=== PATIENT | female | born 1945 | race Caucasian/White ===

== ENCOUNTER 2017-11-01 11:23 | Emergency (ER) | payer MEDICARE, OTHER ==
[~2017-11-01] VITALS: Ht 162.6 cm; Wt 65.0 kg
[~2017-11-01 11:23] MED LIST: ASPI81TA82 PO; CALC600T34 PO; CO Q100C9 PO; COZA50TA PO; KRIL1000 PO; NAPR500 PO; SIMV10TA PO; TAB-TAB PO
[2017-11-01 11:26] VITALS: BP 137/91; PULSE 87; RESP 16; TEMP 97.8; O2SAT 97
--- NOTE | 2017-11-01 11:48 | PD ---
HPI Chief Complaint: GI Complaint Time Seen by Provider: 11:47 Travel History International Travel<30 days: No Contact w/Intl Traveler<30days: No Traveled to known affect area: No History of Present Illness HPI 71-year-old female came to the emergency room with history of vomiting and diarrhea that started 4 days ago. Patient says she initially had vomiting for 36 hours which stopped. She cannot get the diarrhea to stop. She took some Imodium [id number] but has not helped. She has had more than 10 episodes of diarrhea in past 24 hours. The last one was at 9:30. Patient says whenever she eats or drinks comes right through. No blood in her stool. No history of severe abdominal pain. No known sick contacts. Patient has not been on antibiotics. No history of C. difficile colitis in the past. Vital signs were relatively stable. PFSH Past Medical History Narrative Medical List of her past medical, surgical, social and family history is reviewed from the nursing note. Hx Anticoagulant Therapy: Yes (BABY ASA DAILY) Cardiovascular Problems: Yes (HTN) High Cholesterol: Yes Chemotherapy: No Cerebrovascular Accident: No Diabetes: No Diminished Hearing: No Herniated Disk: Yes (C5-C6) Hypertension: Yes Respiratory: Yes (BRONCHITIS) Migraines: Yes ?: Not Menopausal: Yes : 0 Past Surgical History Eye Surgery: Yes (CATARACT: BILATERAL, 2013) Hysterectomy: Yes Neurologic Surgery: Yes (ACDF C5-C6) Oral Surgery: Yes (PERIDONTAL) Tonsillectomy: Yes Other Surgery: Yes (ACDF) Social History Alcohol Use: Yes ("BEER ONCE IN A BLUE HUERTA") Tobacco Use: No Substance Use: No Allergies-Medications (Allergen,Severity, Reaction): Coded Allergies: propoxyphene (Unverified Allergy, Intermediate, NAUSEA, 11/01/17) morphine (Unverified Adverse Reaction, Severe, N/V, MIGRAINES, 11/01/17) Comments List of etiologies reviewed from the nursing note. Reported Meds & Prescriptions Reported Meds & Active Scripts Active Lomotil (Diphenoxylate-Atropine) 2.5-0.025 Mg Tab 1 Tab PO Q6H PRN Reported Simvastatin 10 Mg Tab 10 Mg PO DAILY Meloxicam 15 Mg Tab 15 Mg PO DAILY Losartan (Losartan Potassium) 50 Mg Tab 50 Mg PO DAILY Aspirin Low Dose (Aspirin) 81 Mg Chew 81 Mg CHEW DAILY Narrative Medication List of the home medications reviewed from the nursing note. Review of Systems Except as stated in HPI: all other systems reviewed are Neg Gastrointestinal: Positive: Diarrhea Physical Exam Narrative GENERAL: Awake, alert, moderate distress SKIN: Focused skin assessment warm/dry. HEAD: Atraumatic. Normocephalic. EYES: Pupils equal and round. No scleral icterus. No injection or drainage. ENT: No nasal bleeding or discharge. Dry tongue and mucous membrane. NECK: Trachea midline. No JVD. CARDIOVASCULAR: Regular rate and rhythm. No murmur appreciated. RESPIRATORY: No accessory muscle use. Clear to auscultation. Breath sounds equal bilaterally. GASTROINTESTINAL: Abdomen soft, non-tender, nondistended. Hepatic and splenic margins not palpable. MUSCULOSKELETAL: No obvious deformities. No clubbing. No cyanosis. No edema. NEUROLOGICAL: Awake and alert. No obvious cranial nerve deficits. Motor grossly within normal limits. Normal speech. PSYCHIATRIC: Appropriate mood and affect; insight and judgment normal. Data Data Last Documented VS Orders Orders Basic Metabolic Panel (Bmp) (11/01/17 12:34) Complete Blood Count With Diff (11/01/17 12:34) Iv Access Insert/Monitor (11/01/17 12:34) Ecg Monitoring (11/01/17 12:34) Oximetry (11/01/17 12:34) Sodium Chlor 0.9% 1000 Ml Inj (Ns 1000 M (11/01/17 12:34) Sodium Chloride 0.9% Flush (Ns Flush) (11/01/17 12:45) Diphenoxylate/Atropine Tab (Lomotil Tab) (11/01/17 12:45) Ed Discharge Order (11/01/17 13:32) Labs Laboratory Tests Test 11/01/17 11:40 White Blood Count 5.4 TH/MM3 Red Blood Count 4.69 MIL/MM3 Hemoglobin 14.8 GM/DL Hematocrit 43.5 % Mean Corpuscular Volume 92.7 FL Mean Corpuscular Hemoglobin 31.4 PG Mean Corpuscular Hemoglobin Concent 33.9 % Red Cell Distribution Width 12.2 % Platelet Count 272 TH/MM3 Mean Platelet Volume 8.7 FL Neutrophils (%) (Auto) 50.7 % Lymphocytes (%) (Auto) 33.4 % Monocytes (%) (Auto) 12.7 % Eosinophils (%) (Auto) 2.3 % Basophils (%) (Auto) 0.9 % Neutrophils # (Auto) 2.8 TH/MM3 Lymphocytes # (Auto) 1.8 TH/MM3 Monocytes # (Auto) 0.7 TH/MM3 Eosinophils # (Auto) 0.1 TH/MM3 Basophils # (Auto) 0.0 TH/MM3 CBC Comment DIFF FINAL Differential Comment Blood Urea Nitrogen 14 MG/DL Creatinine 0.81 MG/DL Random Glucose 96 MG/DL Calcium Level 8.7 MG/DL Sodium Level 136 MEQ/L Potassium Level 3.6 MEQ/L Chloride Level 105 MEQ/L Carbon Dioxide Level 22.4 MEQ/L Anion Gap 9 MEQ/L Estimat Glomerular Filtration Rate 70 ML/MIN MDM Medical Decision Making Medical Screen Exam Complete: Yes Emergency Medical Condition: Yes Medical Record Reviewed: Yes Differential Diagnosis Acute gastroenteritis, dehydration Narrative Course 1:30 PM blood test results of back and within acceptable limits. Patient was given 1 dose of Lomotil and IV fluid bolus. I would like to discharge her home at this point. Procedures EKG Prior to Arrival: No Diagnosis Primary Impression: Acute gastroenteritis Additional Impression: Diarrhea Qualified Codes: R19.7 - Diarrhea, unspecified Referrals: Primary Care Physician Additional Instructions: Take the medication as per the prescription direction. Drink lots of fluid. Return to the emergency room if condition worsens or any other new concerns. Otherwise follow-up with your primary care. Med/Other Pt SpecificInfo: Prescription(s) given Scripts Diphenoxylate-Atropine (Lomotil) 2.5-0.025 Mg Tab 1 TAB PO Q6H Y for DIARRHEA, #6 TAB 0 Refills Prov: Milly Denis MD 11/01/17 Disposition: 01 DISCHARGE HOME Condition: Stable Milly Denis MD Nov 01, 2017 11:47
[2017-11-01] MEDS ORDERED: ASPI81CH6 CHEW (11:51)
[2017-11-01] MEDS ORDERED: MELO15TA20 PO (11:51)
[2017-11-01] MEDS ORDERED: LOSA50TA PO (11:51)
[2017-11-01] MEDS ORDERED: SIMV10TA PO (11:51)
[2017-11-01] MEDS ORDERED: SODIUM CHLOR 0.9% 1000 ML INJ 1,000 ML IV SCH (12:34)
[2017-11-01] MEDS ORDERED: DIPHENOXYLATE/ATROPINE 2.5 MG/0.025 MG TAB PO ONE (12:45)
[2017-11-01] MEDS ORDERED: SODIUM CHLORIDE 0.9% FLUSH 10 ML FLUSH IV FLUSH PRN (12:45)
[2017-11-01 12:54] VITALS: O2SAT 99
[2017-11-01 12:54] LABS: AUTOMATED NEUTROPHIL # 2.8 TH/MM3 (1.8-7.7); BASOPHIL % 0.9 % (0.0-2.0); EOSINOPHIL # 0.1 TH/MM3 (0-0.4); EOSINOPHIL % 2.3 % (0.0-4.0); HEMATOCRIT 43.5 % (35.0-46.0); HEMOGLOBIN 14.8 GM/DL (11.6-15.3); LYMPH % 33.4 % (9.0-44.0); LYMPHOCYTE # 1.8 TH/MM3 (1.0-4.8); MEAN CELL VOLUME 92.7 FL (80.0-100.0); MEAN CORPUSCULAR HEMOGLOBIN 31.4 PG (27.0-34.0); MEAN CORPUSCULAR HGB CONC 33.9 % (32.0-36.0); MEAN PLATELET VOLUME 8.7 FL (7.0-11.0); MONO % 12.7 % (0.0-8.0); MONOCYTE # 0.7 TH/MM3 (0-0.9); NEUT % 50.7 % (16.0-70.0); PLATELET COUNT 272 TH/MM3 (150-450); RED BLOOD COUNT 4.69 MIL/MM3 (4.00-5.30); RED CELL DISTRIBUTION WIDTH 12.2 % (11.6-17.2); WHITE BLOOD COUNT 5.4 TH/MM3 (4.0-11.0)
[2017-11-01 12:55] VITALS: BP 155/77; PULSE 65; RESP 18; O2SAT 98
[2017-11-01 13:08] LABS: CALCIUM 8.7 MG/DL (8.5-10.1)
[2017-11-01 13:09] LABS: BICARBONATE 22.4 MEQ/L (21.0-32.0)
[2017-11-01 13:12] LABS: CREATININE 0.81 MG/DL (0.50-1.00)
[2017-11-01] MEDS ORDERED: LOMO2.5T PO (13:32)
== END 2017-11-01 13:47 | disposition home or self-care (01) ==
LOC: PHED 11:23
DX: K52.9 Noninfective gastroenteritis and colitis, unspecified (principal); E78.00 Pure hypercholesterolemia, unspecified; I10 Essential (primary) hypertension
CPT/HCPCS: 80048; 85025; 96360; 99284; J7030